=== PATIENT | female | born 1965 | race Caucasian/White ===

== ENCOUNTER → 2016-10-27 | Day surgery (SDC) | payer BC ==
--- NOTE | 2016-10-28 07:23 | OP ---
DATE OF OPERATION: 10/27/2016 PREOPERATIVE DIAGNOSIS: Abnormal right mammography. POSTOPERATIVE DIAGNOSIS: Abnormal right mammography. PROCEDURE: Right stereotactic needle biopsy with clip. SURGEON: Angeles Hardin MD ANESTHESIA: Local. COMPLICATIONS: None. This is a sterile procedure. INDICATION FOR PROCEDURE: Patient presented with screening mammography that noted clustering microcalcifications in the posterior upper outer right breast as well as a 2nd set seen only on the MLO view more anteriorly. try to attempt to biopsy the 1 posteriorly. She does have bilateral implants that are subglandular done a month ago. The procedure was discussed with her, including need for clip. PROCEDURE IN DETAIL: Patient brought to [facility], [place]. Laid prone on the OR table. Using several different approaches, the approach that seemed to work the best was caudal and what appeared to be some large calcifications in the upper outer right breast were identified. A sterile prep was obtained. A target was chosen. There was a positive stroke margin. Using Betadine, 1% lidocaine, a [employer] device was used to take several cores from this area. Cores just showed dense breast and I was unable to see the calcifications, but they are very difficult even on the pre mammogram. Therefore, I sent the tissue to Pathology and await that result before proceeding. This is a very difficult case in trying to get the subglandular implants out of the way, but I was able to do that safely. Hemostasis was assured with direct pressure. Steri-Strips were used to close the incision. She tolerated the procedure well. Left the breast imaging center in good condition. ANGELES HARDIN M.D. [id number]
--- NOTE | 2016-10-28 15:41 | PATH ---
Surgical Pathology Report Patient Name: JOLLY PIPER [facility]. Rec. #: [id number] /Age/Gender: 1965 (Age: 51) / F Account: [id number] Location: [facility] Taken: 10/27/2016 Received: 10/27/2016 Reported: 10/28/2016 Physicians: Angeles Altman M.D. Specimen(s) Received RIGHT BREAST SPECIMEN WITHOUT CALCIFICATIONS Clinical History Nonpalpable lesion Mammographic findings: suspicious microcalcification Final Diagnosis BREAST, RIGHT, WITHOUT CALCIFICATIONS, STEREOTACTIC BIOPSY: BENIGN BREAST TISSUE SHOWING STROMAL FIBROSIS. Electronically Signed Neena Montes M.D. Gross Description Received in formalin, labeled "right breast without calcifications," are 8 christianson-yellow, cylindrical portions of fibroadipose tissue ranging from 0.5-2.0 cm. in length and averaging 0.4 cm. in diameter. The specimen is submitted in toto in one cassette. Time to formalin fixation: 6 minutes Total formalin fixation time: Approximately 9 hours. 10/27/2016 [facility]10/27/2016
== END | disposition home or self-care (01) ==
LOC: FMAMMOTONE 11:42
PROVIDERS: ATTEND Surgery
PROC: 0HBT3ZX Excision of Right Breast, Percutaneous Approach, Diagnostic (ICD-10-PCS; principal; 2016-10-27)
DX: N60.31 Fibrosclerosis of right breast (principal); R92.1 Mammographic calcification found on diagnostic imaging of breast
CPT/HCPCS: 19081; 88305-TC